=== PATIENT | male | born 2000 | race Caucasian/White ===

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

== ENCOUNTER 2020-07-25 15:00 | Outpatient (RCR) | payer MEDICAID, SELFPAY ==
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
--- NOTE | 2020-07-25 15:30 | HP.PTDCSUM ---
It has been my pleasure to treat DAVE JAMES Jr. referred by Dr. Jassi Ahumada MD, with the diagnosis of BACK PAIN for a total of 8 visit(s). Discharge Date: Please see the following information for a summary of their discharge status. Subjective: Patient reports doing good . Pain is minimal symmtrical LPB. Patient is working full duty Bilateral Back Pain Intensity (Out of 10): 0 % Improvement: 75 Objective/Function: POSTURE: WNL. GAIT: reciprocal pattern. NEURO: denies paratheisa/tingling. PALAPTION: intact. LUMBAR ROM: flexion WFL,extension min loss,side glide min loss. MMT: quads/hams/hip/ankle 5/5 Goal 1:: I with HEP Goal Progress: Goal Met Goal 2:: Decrease pain lumbar pain by 70% or > to improve function. Goal Progress: Goal Met Goal 3:: Patient to improve lumbar ROM for function of recovery Goal Progress: Goal Met Goal 4:: Pateint return to job demands without limiations Goal Progress: Goal Met Goal 5:: Patient to improVe back owestry score by 5 points or > to QOL. Goal Progress: Goal Met Plan: D/C TO HEP If there are questions or concerns regarding this patient's physical therapy, please feel free to call me at [phone]. Thank you for the referral of this patient. Sincerely, Gerry Conti, PT, Cert MDT, OCS
== END 2020-07-25 19:00 | disposition home or self-care (01) ==
LOC: PT 15:00
PROVIDERS: PCP Pediatrics; Referring Provider Pediatrics; Visit Provider Pediatrics
DX: M54.5 Low back pain (principal); G89.29 Other chronic pain
CPT/HCPCS: 97014; 97110; 97140; 97162; 97530; G0283

== ENCOUNTER 2020-08-31 17:37 | Emergency (ER) | payer MEDICAID, SELFPAY ==
[2020-08-31 17:38] VITALS: BP 133/78; PULSE 89; RESP 16; TEMP 36.9; O2SAT 98; BMI 23.4
--- NOTE | 2020-08-31 17:51 | EX.ED.GENINJ ---
HPI History of Present Illness Chief Complaint: Laceration Narrative Narrative: 19-year-old male presenting with laceration to left distal middle finger. He states he cut this on a razor blade just prior to arrival. He states it is not painful. Initially was bleeding but is now under control. He denies any numbness or tingling. He is right-hand dominant. Tetanus is up-to-date. Tetanus Immunization: <5 years PFSH PFSH no medical history Home Medications meloxicam 15 mg PO DAILY PRN 12/13/18 [History Last Taken 12/13/18] prednisone 40 mg PO QHS #4 tab 12/13/18 [Rx Last Taken Unknown] no significant family history no surgical history Social History Smoking Status: Never smoker ROS ROS ED Constitutional Constitutional ED: Denies chills, fever(s) or sweats Eyes Eyes: Denies blurry vision or change in vision ENT ENT ED: Denies ear pain, rhinorrhea or sore throat Cardiovascular Cardiovascular: Denies chest pain, palpitations or racing heartbeat Respiratory/Chest Respiratory/Chest: Denies cough, dyspnea or sputum Gastrointestinal Gastrointestinal: Denies abdominal pain, constipation, diarrhea or vomiting Genitourinary Genitourinary ED: Denies dysuria, hematuria or urinary frequency Musculoskeletal Musculoskeletal: Denies arthralgias, myalgias or neck pain Integumentary Reports other Details: Left middle finger laceration ; Denies abscess, Abrasions or rash Neurologic Neurologic: Denies headache(s), paresthesias or weakness Psychiatric Psychiatric: Denies anxiety, depression, suicidal ideation or suicidal thoughts Endocrine Endocrinology: Denies polydipsia or polyuria EXAM Physical Exam Const Vital Signs: 08/31/20 17:38 Temperature 98.4 F Temperature Source Temporal Pulse Rate 89 Respiratory Rate 16 Blood Pressure 133/78 H Blood Pressure Mean 96 Pulse Ox 98 Oxygen Delivery Method Room Air Positive well nourished General Appearance ED: NAD; Negative for pallor HEENT Reports normocephalic, head/scalp atraumatic and moist mucous membranes Eyes PERRL and EOMs intact bilaterally Neck no lymphadenopathy and supple Chest Wall inspection of chest normal and palpation of chest normal Resp normal respiratory effort and clear to auscultation bilaterally Auscultation: Negative for rales, rhonchi or wheezes Cardio regular rate and regular rhythm GI normal to inspection, nondistended, normoactive bowel sounds and non-distended Auscultation: normoactive bowel sounds Palpation: soft Narrative: Deferred Back/Spine no CVA tenderness General Back: Negative for CVA tenderness Cervical Spine: Negative for cervical spine tenderness Extremity Extremity Narrative: Minimal tenderness to palpation of the left index finger distally around superficial laceration. No active bleeding. Left hand neurovascular intact brisk cap refill to all 5 fingers. Neuro oriented x3 and CN's II-XII intact bilaterally Sensorium / Orientation: alert Motor Exam: strength 5/5 throughout Psych mental status grossly normal Attitude: No agitated Skin Skin Narrative: 1 cm superficial laceration left index finger. No active bleeding. General Skin Exam: Negative for jaundice or pallor MDM MDM MDM Narrative Medical decision making narrative: Patient has superficial laceration to the left middle finger which is not bleeding. It does not require sutures. Patient's immunizations are up-to-date. Patient's wound will be cleaned and dressed with bacitracin dressing in the ED. He is counseled on wound care and monitor for signs of infection. Patient stable for discharge at this time. Impression: 1. 1 cm superficial laceration left middle finger Discharge Plan Triage Chief Complaint: Laceration ED Provider: Julio Soto Dx/Rx/DC Orders Instructions: ED Laceration Small or ... Prescriptions: No Action meloxicam 15 MG tablet 15 mg PO DAILY PRN (Reason: Pain) RF: 0 prednisone 20 MG tablet 40 mg PO QHS Qty: 4 RF: 0 Primary Care Provider: Jassi Ahumada Referrals: Jassi Ahumada MD [Primary Care Provider] - Disposition Disposition: Home, self care
[2020-08-31 18:11] VITALS: PULSE 67; RESP 18; O2SAT 99
--- NOTE | 2020-08-31 18:11 | ED.RN ---
THIS NURSE REVIEWED D/C INSTRUCTIONS WITH PT. PT VERBALIZED UNDERSTANDING OF INSTRUCTIONS. PT DENIES FURTHER NEEDS OR QUESTIONS AT THIS TIME.
== END 2020-08-31 18:14 | disposition home or self-care (01) ==
LOC: ED 18:00
PROVIDERS: Emergency Provider Student in an Organized Health Care Education/Training Program; PCP Pediatrics
DX: S61.213A Laceration without foreign body of left middle finger without damage to nail, initial encounter (principal); W26.8XXA Contact with other sharp object(s), not elsewhere classified, initial encounter; Y93.9 Activity, unspecified; Y92.9 Unspecified place or not applicable; Y99.9 Unspecified external cause status
CPT/HCPCS: 99282

== ENCOUNTER 2021-03-30 17:53 | Emergency (ER) | payer MEDICAID, SELFPAY ==
[2021-03-30 17:54] VITALS: BP 134/67; PULSE 78; RESP 18; TEMP 36.6; O2SAT 100; BMI 20.9
== END 2021-03-30 18:25 | disposition left against medical advice (07) ==
LOC: ED 18:31
PROVIDERS: PCP Pediatrics
DX: R69 Illness, unspecified (principal); Z53.21 Procedure and treatment not carried out due to patient leaving prior to being seen by health care provider